=== PATIENT | female | born 1975 | race Caucasian/White ===

== ENCOUNTER 2022-05-03 10:06 | Emergency (ER) | payer OTHER ==
[2022-05-03] MEDS ORDERED: Sodium Chloride 0.9% 1000 ML 1,000 ML ONE ×2 (10:37→11:44)
[2022-05-03] MEDS ORDERED: Sodium Chloride 0.9% 1000 ML 1,000 ML IV STA ×2 (10:37→11:43)
[2022-05-03] MEDS ORDERED: TORAdol 30 mg Injection ONE (10:37)
[2022-05-03] MEDS ORDERED: Zofran 4 MG/2 ML VIAL ONE (10:37)
[2022-05-03 10:43] LABS: Hemoglobin 13.1 g/dL (12.0-16.0); Mean Cell Volume 87.8 fL (78-100); Mean Corpuscular Hemoglobin 29.5 pg (26-32); Mean Corpuscular Hgb Concent. 33.6 g/dL (32-36); Mean Platelet Volume 9.4 fL (7.5-11.0); Platelet Count 319 x10^3/uL (150-450); Red Blood Count 4.44 x10^6/uL (4.1-5.4); Red Cell Distribution Width 14.4 % (11.5-14.0)
[2022-05-03 10:49] LABS: White Blood Count 31.7 x10^3/uL (4.0-10.5)
[2022-05-03 10:56] LABS: ALBUMIN 3.6 g/dL (3.5-5.0); ALKALINE PHOSPHATASE 221 U/L (38-126); ANION GAP 17.5 MEQ/L (5-15); BLOOD UREA NITROGEN 22 mg/dL (7-17); CHLORIDE 94 mmol/L (98-107); Calcium 8.8 mg/dL (8.4-10.2); Carbon Dioxide 20 mmol/L (22-30); Creatinine 1 0.84 mg/dL (0.52-1.04); EST GLOMERULAR FILTRATION RATE > 60.0 ML/MIN; Glucose 292 mg/dL (74-106); LIPASE 15 U/L (23-300); Potassium 3.6 mmol/L (3.5-5.1); SGOT/AST 28 U/L (14-36); SGPT/ALT 37 U/L (0-35); SODIUM 129 mmol/L (137-145); Total Protein 7.4 g/dL (6.3-8.2)
--- NOTE | 2022-05-03 11:13 | ERPHSYRPT ---
- History of Present Illness Time Seen by Provider: 05/03/22 10:34 Historian: patient Exam Limitations: no limitations Patient Subjective Stated Complaint: Left sided flank pain Triage Nursing Assessment: Patient brought back to ED per w/c and transferred self to bed. Patient A+O X 3. Patient's skin flushed, warm and dry. Patient complains of left sided flank pain/abdominal pain that started Tuesday. Patient states around 0200 she started urinating blood. Patient complains of left sided flank/abdominal pain 12/09. Abdomen soft and round with BS X 4. Patient complains of nausea, but denies vomiting or diarrhea. Physician History: 46 years old female presented to ER with chief complaint of left flank pain for last 3 days with progressive worsening, moderate to severe sharp, radiating around to the left groin, aggravated with movements, associated with nausea and also reports having hematuria. Subjective feeling of fever and chills with generalized weakness fatigue and tiredness. Does have history of kidney stones. Timing/Duration: day(s) (3), gradual onset, worse Activities at Onset: rest Quality: sharpness Abdominal Pain Onset Location: LUQ, LLQ, suprapubic, flank Pain Radiation: groin Severity of Pain-Max: severe Severity of Pain-Current: severe Modifying Factors: Worsens With: movement, palpation Associated Symptoms: nausea Previous symptoms: no prior history Allergies/Adverse Reactions: cephalexin [From Keflex] Allergy (Verified 05/03/22 10:33) Penicillins Allergy (Verified 05/03/22 10:33) Home Medications: Bupropion HCl Xl 150 mg [Wellbutrin XL 150 MG] 1 tab PO DAILY 05/03/22 [History] Empagliflozin [Jardiance] 25 mg PO DAILY 05/03/22 [History] PANTOPRAZOLE 40 mg Tablet [Protonix 40MG Tablet] 1 tab PO BID 05/03/22 [History] Hx Influenza Vaccination/Date Given: No Hx Pneumococcal Vaccination/Date Given: No Immunizations Up to Date: Yes Travel Risk - International Travel Have you traveled outside of the country in past 3 weeks: No - Coronavirus Screening Are you exhibiting any of the following symptoms?: No Close contact with a COVID-19 positive Pt in past 14-21 Days: No - Vaccine Status Have you recieved a Covid-19 vaccination: Yes [employer]oration [employer]ologist: Moderna - Vaccination Dates Date of 2cond Vaccination (if applicable): na - Review of Systems Constitutional: No Symptoms Eyes: No Symptoms Ears, Nose, & Throat: No Symptoms Respiratory: No Symptoms Cardiac: No Symptoms Abdominal/Gastrointestinal: Abdominal Pain, Nausea Genitourinary Symptoms: Hematuria Musculoskeletal: Back Pain Skin: No Symptoms Neurological: No Symptoms Endocrine: No Symptoms Hematologic/Lymphatic: No Symptoms Immunological/Allergic: No Symptoms - Past Medical History Pertinent Past Medical History: Yes Neurological History: No Pertinent History ENT History: No Pertinent History Cardiac History: High Cholesterol Respiratory History: No Pertinent History Endocrine Medical History: Diabetes Type I Musculoskeletal History: No Pertinent History GI Medical History: No Pertinent History History: No Pertinent History Psycho-Social History: Anxiety, Depression Female Reproductive Disorders: No Pertinent History - Past Surgical History Past Surgical History: Yes Neuro Surgical History: No Pertinent History Gastrointestinal: Appendectomy, Cholecystectomy Musculoskeletal: Prosthesis Female Surgical History: Hysterectomy Other Surgical History: Above knee amputeee - Social History Smoking Status: Never smoker Exposure to second hand smoke: No Drug Use: marijuana Patient Lives Alone: No - Female History Hx Last Menstrual Period: hysterectomy Hx Now: (unkn) - Nursing Vital Signs Nursing Vital Signs: Initial Vital Signs Temperature 99.0 F 05/03/22 10:36 Pulse Rate 103 H 05/03/22 10:36 Respiratory Rate 18 05/03/22 10:36 Blood Pressure 129/84 05/03/22 10:36 O2 Sat by Pulse Oximetry 98 05/03/22 10:36 Pain Scale Pain Intensity 8 - Physical Exam General Appearance: no apparent distress, alert Eye Exam: PERRL/EOMI Ears, Nose, Throat Exam: normal ENT inspection Neck Exam: normal inspection, non-tender, supple, full range of motion Respiratory Exam: normal breath sounds, lungs clear Cardiovascular Exam: regular rate/rhythm, normal heart sounds Gastrointestinal/Abdomen Exam: soft, normal bowel sounds, tenderness (Flank/left lower quadrant) Back Exam: normal inspection, CVA tenderness Extremity Exam: normal inspection, normal range of motion, pelvis stable Neurologic Exam: alert, oriented x 3 Skin Exam: normal color SpO2 Interpretation: normal SpO2: 98 O2 Delivery: Room Air Ordered Tests: Active Orders 24 hr Category Date Time Status IV Insertion STAT Care 05/03/22 10:37 Active IV Insertion-2nd Peripheral STAT Care 05/03/22 11:41 Active NPO (ED) STAT Care 05/03/22 10:37 Active Release AMA OM.NOW Care 05/03/22 17:55 Active ABDOMEN AND PELVIS W CONTRAST [CT] Stat Exams 05/03/22 12:55 Completed ABDOMEN AND PELVIS W/0 CONTRAS [CT] Stat Exams 05/03/22 12:07 Completed BLOOD CULTURE Stat Lab 05/03/22 11:05 Received CBC W DIFF Stat Lab 05/03/22 10:35 Results CMP Stat Lab 05/03/22 10:35 Completed CULTURE,URINE Stat Lab 05/03/22 10:46 Received HCG,QUALITATIVE URINE Stat Lab 05/03/22 10:46 Completed LIPASE Stat Lab 05/03/22 10:35 Completed Lactic Acid Stat Lab 05/03/22 10:54 Completed Lactic Acid Stat Lab 05/03/22 13:30 Completed Manual Differential NC Stat Lab 05/03/22 10:35 Results PROCALCITONIN Stat Lab 05/03/22 11:05 Completed Pathologist Review Stat Lab 05/03/22 10:35 Results UA W/RFX CULTURE Stat Lab 05/03/22 10:46 Completed Transfer Order Routine Transfer 05/03/22 Ordered Medication Summary Generic Name Dose Route Start Last Admin Trade Name Freq PRN Reason Stop Dose Admin Potassium Chloride/Sodium Chloride 1,000 mls @ 125 mls/hr 05/03/22 13:00 05/03/22 14:49 Sodium Chloride 0.45% W/ 20 Meq Kcl IV 06/02/22 12:59 125 mls/hr .Q8H RUDI Administration Discontinued Medications Generic Name Dose Route Start Last Admin Trade Name Freq PRN Reason Stop Dose Admin Hydromorphone HCl 1 mg 05/03/22 12:32 05/03/22 12:36 Hydromorphone 1 Mg/1ml Inj 1 Mg/Ml Syringe IV 05/03/22 12:33 1 mg STAT ONE Administration Hydromorphone HCl Confirm 05/03/22 12:35 Hydromorphone 1 Mg/1ml Inj 1 Mg/Ml Syringe Administered 05/03/22 12:36 Dose 1 mg .ROUTE .STK-MED ONE Hydromorphone HCl 1 mg 05/03/22 15:11 05/03/22 15:16 Hydromorphone 1 Mg/1ml Inj 1 Mg/Ml Syringe IV 05/03/22 15:12 1 mg STAT ONE Administration Hydromorphone HCl Confirm 05/03/22 15:13 Hydromorphone 1 Mg/1ml Inj 1 Mg/Ml Syringe Administered 05/03/22 15:14 Dose 1 mg .ROUTE .STK-MED ONE Hydromorphone HCl 0.5 mg 05/03/22 17:34 05/03/22 17:38 Hydromorphone 1 Mg/1ml Inj 1 Mg/Ml Syringe IV 05/03/22 17:35 0.5 mg STAT ONE Administration Hydromorphone HCl Confirm 05/03/22 17:39 Hydromorphone 1 Mg/1ml Inj 1 Mg/Ml Syringe Administered 05/03/22 17:40 Dose 1 mg .ROUTE .STK-MED ONE Sodium Chloride Confirm 05/03/22 10:37 Sodium Chloride 0.9% 1000 Ml Administered 05/03/22 10:38 Dose 1,000 mls @ ud .ROUTE .STK-MED ONE Sodium Chloride 1,000 mls @ 999 mls/hr 05/03/22 10:37 05/03/22 11:55 Sodium Chloride 0.9% 1000 Ml IV 05/03/22 11:37 Infused .Q1H1M STA Infusion Levofloxacin/Dextrose 750 mg in 150 mls @ 100 mls/hr 05/03/22 11:28 05/03/22 13:17 Levofloxacin 750mg/150ml D5w IV 05/03/22 12:57 Infused STAT STA Infusion Aztreonam 2 gm/ Sodium 100 mls @ 200 mls/hr 05/03/22 11:29 05/03/22 12:17 Chloride IV 05/03/22 11:58 200 mls/hr STAT ONE Administration Sodium Chloride 1,000 mls @ 999 mls/hr 05/03/22 11:43 05/03/22 12:47 Sodium Chloride 0.9% 1000 Ml IV 05/03/22 12:43 Infused .Q1H1M STA Infusion Sodium Chloride Confirm 05/03/22 11:44 Sodium Chloride 0.9% 1000 Ml Administered 05/03/22 11:45 Dose 1,000 mls @ ud .ROUTE .STK-MED ONE Levofloxacin/Dextrose Confirm 05/03/22 11:44 Levofloxacin 750mg/150ml D5w Administered 05/03/22 11:45 Dose 750 mg in 150 mls @ ud IV .STK-MED ONE Ketorolac Tromethamine Confirm 05/03/22 10:37 Ketorolac Tromethamine 30 Mg/Ml Inj Administered 05/03/22 10:38 Dose 30 mg .ROUTE .STK-MED ONE Ketorolac Tromethamine 30 mg 05/03/22 11:21 05/03/22 11:23 Ketorolac Tromethamine 30 Mg/Ml Inj IV 05/03/22 11:22 30 mg STAT ONE Administration Metoclopramide HCl 10 mg 05/03/22 15:11 05/03/22 15:15 Metoclopramide Hcl 10 Mg/2 Ml Vial IV 05/03/22 15:12 10 mg STAT ONE Administration Metoclopramide HCl Confirm 05/03/22 15:13 Metoclopramide Hcl 10 Mg/2 Ml Vial Administered 05/03/22 15:14 Dose 10 mg .ROUTE .STK-MED ONE Ondansetron HCl Confirm 05/03/22 10:37 Ondansetron Hcl 4 Mg/2 Ml Vial Administered 05/03/22 10:38 Dose 4 mg .ROUTE .STK-MED ONE Ondansetron HCl 4 mg 05/03/22 11:21 05/03/22 11:23 Ondansetron Hcl 4 Mg/2 Ml Vial IV 05/03/22 11:22 4 mg STAT ONE Administration Lab/Rad Data: Laboratory Result Diagrams 05/03/22 10:35 05/03/22 10:35 Laboratory Results 05/03/22 05/03/22 05/03/22 Range/Units 13:30 12:00 11:05 WBC (4.0-10.5) x10^3/uL RBC (4.1-5.4) x10^6/uL Hgb (12.0-16.0) g/dL Hct (35-47) % MCV (78-100) fL MCH (26-32) pg MCHC (32-36) g/dL RDW (11.5-14.0) % Plt Count (150-450) x10^3/uL MPV (7.5-11.0) fL Segmented Neutrophils (36.0-66.0) % Band Neutrophils (0.0-2.0) % Lymphocytes (Manual) (24-44) % Monocytes (Manual) (0.0-12.0) % Platelet Estimate (NORMAL) RBC Morphology Smear Path Review Sodium (137-145) mmol/L Potassium (3.5-5.1) mmol/L Chloride (98-107) mmol/L Carbon Dioxide (22-30) mmol/L Anion Gap (5-15) MEQ/L BUN (7-17) mg/dL Creatinine (0.52-1.04) mg/dL Estimated GFR ML/MIN Glucose (74-106) mg/dL Lactic Acid 1.0 (0.4-2.0) Calcium (8.4-10.2) mg/dL Total Bilirubin (0.2-1.3) mg/dL AST (14-36) U/L ALT (0-35) U/L Alkaline Phosphatase (38-126) U/L Serum Total Protein (6.3-8.2) g/dL Albumin (3.5-5.0) g/dL Lipase (23-300) U/L Procalcitonin 4.000 H* (0.030-0.080) ng/mL Urinalys Dipstick Clnc Urine Color (YELLOW) Urine Appearance (CLEAR) Urine pH (5-6) Ur Specific [place] (1.005-1.025) POC Urine Protein Conf (Negative) Urine Ketones (NEGATIVE) Urine Nitrite (NEGATIVE) Urine Bilirubin (NEGATIVE) Urine Urobilinogen (0-1) mg/dL Urine Leukocytes (NEGATIVE) Urine WBC (Auto) (0-5) /HPF Urine RBC (Auto) (0-2) /HPF U Epithel Cells (Auto) (FEW) /HPF Urine Bacteria (Auto) (NEGATIVE) /HPF Urine RBC (0-5) Finesse/ul Urine Mucus (Auto) (NEGATIVE) /HPF Urine Yeast (Budding) (NEGATIVE) /HPF Ur Culture Indicated? Urine Glucose (NEGATIVE) mg/dL Urine HCG, Qual (Negative) Influenza Type A Ag NEGATIVE (NEGATIVE) Influenza Type B Ag NEGATIVE (NEGATIVE) RSV (PCR) NEGATIVE (Negative) SARS-CoV-2 (PCR) NEGATIVE (NEGATIVE) 05/03/22 05/03/22 05/03/22 Range/Units 10:54 10:46 10:46 WBC (4.0-10.5) x10^3/uL RBC (4.1-5.4) x10^6/uL Hgb (12.0-16.0) g/dL Hct (35-47) % MCV (78-100) fL MCH (26-32) pg MCHC (32-36) g/dL RDW (11.5-14.0) % Plt Count (150-450) x10^3/uL MPV (7.5-11.0) fL Segmented Neutrophils (36.0-66.0) % Band Neutrophils (0.0-2.0) % Lymphocytes (Manual) (24-44) % Monocytes (Manual) (0.0-12.0) % Platelet Estimate (NORMAL) RBC Morphology Smear Path Review Sodium (137-145) mmol/L Potassium (3.5-5.1) mmol/L Chloride (98-107) mmol/L Carbon Dioxide (22-30) mmol/L Anion Gap (5-15) MEQ/L BUN (7-17) mg/dL Creatinine (0.52-1.04) mg/dL Estimated GFR ML/MIN Glucose (74-106) mg/dL Lactic Acid 2.9 H (0.4-2.0) Calcium (8.4-10.2) mg/dL Total Bilirubin (0.2-1.3) mg/dL AST (14-36) U/L ALT (0-35) U/L Alkaline Phosphatase (38-126) U/L Serum Total Protein (6.3-8.2) g/dL Albumin (3.5-5.0) g/dL Lipase (23-300) U/L Procalcitonin (0.030-0.080) ng/mL Urinalys Dipstick Clnc MAIN LAB Urine Color YELLOW (YELLOW) Urine Appearance CLOUDY A (CLEAR) Urine pH 5.0 (5-6) Ur Specific [place] 1.015 (1.005-1.025) POC Urine Protein Conf 100 A (Negative) Urine Ketones LARGE-80 A (NEGATIVE) Urine Nitrite NEGATIVE (NEGATIVE) Urine Bilirubin SMALL A (NEGATIVE) Urine Urobilinogen 1 A (0-1) mg/dL Urine Leukocytes TRACE A (NEGATIVE) Urine WBC (Auto) >100 A (0-5) /HPF Urine RBC (Auto) >101 A (0-2) /HPF U Epithel Cells (Auto) RARE (FEW) /HPF Urine Bacteria (Auto) MODERATE A (NEGATIVE) /HPF Urine RBC LARGE A (0-5) Finesse/ul Urine Mucus (Auto) SLIGHT A (NEGATIVE) /HPF Urine Yeast (Budding) Few A (NEGATIVE) /HPF Ur Culture Indicated? YES Urine Glucose >=1000 A (NEGATIVE) mg/dL Urine HCG, Qual NEGATIVE (Negative) Influenza Type A Ag (NEGATIVE) Influenza Type B Ag (NEGATIVE) RSV (PCR) (Negative) SARS-CoV-2 (PCR) (NEGATIVE) 05/03/22 05/03/22 Range/Units 10:35 10:35 WBC 31.7 H* (4.0-10.5) x10^3/uL RBC 4.44 (4.1-5.4) x10^6/uL Hgb 13.1 (12.0-16.0) g/dL Hct 39.0 (35-47) % MCV 87.8 (78-100) fL MCH 29.5 (26-32) pg MCHC 33.6 (32-36) g/dL RDW 14.4 H (11.5-14.0) % Plt Count 319 (150-450) x10^3/uL MPV 9.4 (7.5-11.0) fL Segmented Neutrophils 88 H (36.0-66.0) % Band Neutrophils 4 H (0.0-2.0) % Lymphocytes (Manual) 6 L (24-44) % Monocytes (Manual) 2 (0.0-12.0) % Platelet Estimate NORMAL (NORMAL) RBC Morphology NORMAL Smear Path Review Pending Sodium 129 L (137-145) mmol/L Potassium 3.6 (3.5-5.1) mmol/L Chloride 94 L (98-107) mmol/L Carbon Dioxide 20 L (22-30) mmol/L Anion Gap 17.5 H (5-15) MEQ/L BUN 22 H (7-17) mg/dL Creatinine 0.84 (0.52-1.04) mg/dL Estimated GFR > 60.0 ML/MIN Glucose 292 H (74-106) mg/dL Lactic Acid (0.4-2.0) Calcium 8.8 (8.4-10.2) mg/dL Total Bilirubin 1.10 (0.2-1.3) mg/dL AST 28 (14-36) U/L ALT 37 H (0-35) U/L Alkaline Phosphatase 221 H (38-126) U/L Serum Total Protein 7.4 (6.3-8.2) g/dL Albumin 3.6 (3.5-5.0) g/dL Lipase 15 L (23-300) U/L Procalcitonin (0.030-0.080) ng/mL Urinalys Dipstick Clnc Urine Color (YELLOW) Urine Appearance (CLEAR) Urine pH (5-6) Ur Specific [place] (1.005-1.025) POC Urine Protein Conf (Negative) Urine Ketones (NEGATIVE) Urine Nitrite (NEGATIVE) Urine Bilirubin (NEGATIVE) Urine Urobilinogen (0-1) mg/dL Urine Leukocytes (NEGATIVE) Urine WBC (Auto) (0-5) /HPF Urine RBC (Auto) (0-2) /HPF U Epithel Cells (Auto) (FEW) /HPF Urine Bacteria (Auto) (NEGATIVE) /HPF Urine RBC (0-5) Finesse/ul Urine Mucus (Auto) (NEGATIVE) /HPF Urine Yeast (Budding) (NEGATIVE) /HPF Ur Culture Indicated? Urine Glucose (NEGATIVE) mg/dL Urine HCG, Qual (Negative) Influenza Type A Ag (NEGATIVE) Influenza Type B Ag (NEGATIVE) RSV (PCR) (Negative) SARS-CoV-2 (PCR) (NEGATIVE) - Progress Progress: improved, pain not gone completely, re-examined Progress Note: 05/03/22 13:02 46-year-old is evaluated for left flank pain with nausea and hematuria. Patient does have a remote history of kidney stone. No fever on presentation. Given fluids and symptomatic treatment, patient has a white count of 31 with lactate of 2.9 and procalcitonin of 4.0 with UTI, though has stable renal functions. Obtained CT abdomen pelvis without contrast which showed finding consistent with left perinephric fat stranding and questionable cyst rupture. Patient continues to have pain needing multiple doses of pain medication, started on broad-spectrum antibiotics aztreonam and Levaquin. Discussed with Dr. Spears and patient is being admitted, will obtain CT abdomen pelvis with contrast for further evaluation of rupture cyst versus any other acute pathology. Plan discussed with patient and family who understand and agree with it. 05/03/22 15:[address] abdomen pelvis with contrast which showed she has 5 x 2 x 6 cm collection which seems probably perirenal abscess. I believe patient needs urology/IR drain placement. I have discussed with Dr. Villanueva at [facility], no IR services are available and recommended transfer to somewhere else. [facility] and [facility] hospitalist and not excepting patients because of being at a full capacity currently. We will call [facility] and other [facility] for transfer. Plan discussed with patient who understand and agrees with it. 05/03/22 15:56 I have [address] with Dr. Gloria at [facility], reviewed history, work-up, patient is accepted for transfer but there is a wait time before bed would be available maybe 1 to 2 days. Patient is on the wait list. I have called [facility] and they are all also full and putting patient on a wait list for couple of days. We will try to call [facility] to see if we can get a bed quicker. 05/03/22 16:49 I have spoken with Dr. Riddle at [facility], reviewed history work-up and agreed with transfer. No beds available at this moment, will call us back when bed is available. I have also called [facility] in [place], waiting for callback. 05/03/22 16:[address] Navya Dumas at [facility], patient is placed on transfer list. 05/03/22 17:[address] Ko at [facility], reviewed history, work-up and current management, agreed with transfer. They are hopeful bed would be available pretty quickly. 05/03/22 18:04 Bed availability is pending still at multiple facilities. Patient does not want to stay here at all and wants to leave AGAINST MEDICAL ADVICE. Patient is not confused or altered at all. Patient states "I would rather go myself to a bigger hospital rather than staying here and waiting". Significant other is also at bedside and involved in decision making. Discussed with them about worsening of condition, delaying of diagnosis and management but still she wants to leave and signed AMA paperwork. Discussed signs symptoms of worsening needing return which she seems understanding. Patient is planning to go to [facility] ER. 05/03/22 18:06 Counseled pt/family regarding: lab results, diagnosis, need for follow-up, rad results - Departure Departure Disposition: AMA Clinical Impression: Acute pyelonephritis, Sepsis secondary to UTI, Abscess, renal/perirenal Condition: Stable Critical Care Time: No Referrals: DOCTOR,NO FAMILY [Primary Care Provider] - Follow up/PCP as directed
[2022-05-03 11:15] LABS: BAND 4 % (0.0-2.0); Lymphocytes 6 % (24-44); Monocyte 2 % (0.0-12.0); Total Cells Counted 100
[2022-05-03 11:16] LABS: Platelet Estimate NORMAL (NORMAL)
[2022-05-03] MEDS ORDERED: Zofran 4 MG/2 ML VIAL IV ONE (11:21)
[2022-05-03] MEDS ORDERED: TORAdol 30 mg Injection IV ONE (11:21)
[2022-05-03 11:28] LABS: Appearance CLOUDY (CLEAR); Bilirubin SMALL (NEGATIVE); Dipstick done @ ? MAIN LAB; Glucose >=1000 mg/dL (NEGATIVE); Ketones LARGE-80 (NEGATIVE); Nitrite NEGATIVE (NEGATIVE); Protein,Urine Dip 100 (Negative); RBC LARGE Ery/ul (0-5); Specific Gravity 1.015 (1.005-1.025); Urobilinogen 1 mg/dL (0-1)
[2022-05-03] MEDS ORDERED: LEVOFLOXACIN 750MG/150ML D5W 750 MG/150 ML BAG IV STA (11:28)
[2022-05-03 11:29] LABS: Bacteria MODERATE /HPF (NEGATIVE); Epithelial Cells RARE /HPF (FEW); Mucus SLIGHT /HPF (NEGATIVE); WBC >100 /HPF (0-5)
[2022-05-03] MEDS ORDERED: AZACTAM 1 GM*** 2 GM in Sodium Chloride 0.9% 100 ML IV ONE (11:29)
[2022-05-03 11:30] LABS: Budding Yeast Few /HPF (NEGATIVE); RBC >101 /HPF (0-2); Urine Cultured Indicated? YES
[2022-05-03] MEDS ORDERED: LEVOFLOXACIN 750MG/150ML D5W 750 MG/150 ML BAG IV ONE (11:44)
--- NOTE | 2022-05-03 12:22 | XRAY ---
Indication: Left flank pain, hematuria, and leukocytosis. Multiple contiguous axial images obtained through the abdomen and pelvis without contrast using renal stone protocol. Comparison: None Lung bases demonstrate incompletely visualized 1.4 x 0.7 cm posterior right lower lobe irregular subpleural noncalcified nodule. Also mild bibasilar subsegmental atelectasis/scarring and tiny left lower lobe calcified granuloma. Heart not enlarged. No renal calculus or evidence for obstructive uropathy in either system. Left mid kidney demonstrates 5.2 x 2.8 x 4.6 cm cortical hypoattenuation with moderate surrounding perinephric stranding and tiny free fluid either ruptured cyst versus mass. Previous cholecystectomy and appendectomy, and hysterectomy reported. Noncontrasted stomach and bowel loops appear nonobstructed. Mild diffuse scattered colonic fecal debris throughout. 23.5 cm fatty hepatomegaly. No free fluid/air. Remaining pancreas, spleen, adrenal glands, right kidney, right ureter, and bladder are unremarkable for noncontrast exam. Moderate scattered aortoiliac calcifications without AAA. Osseous structures intact with minimal degenerative changes throughout the spine. No ventral or inguinal hernias. Impression: 1. Negative renal calculus or evidence for obstructive uropathy. 2. Left mid renal irregular cortical hypoattenuation with perinephric stranding and tiny free fluid, possible ruptured cyst. Malignancy not completely excluded. Contrast exam may yield further information. 3. Incompletely visualized small indeterminant right lower lobe noncalcified nodule. Dedicated CT chest may yield further information. 4. Mild diffuse fecal stasis, fatty hepatomegaly, arteriosclerotic disease, and degenerative spondylosis.
[2022-05-03 12:31] LABS: INFLUENZA A NEGATIVE (NEGATIVE); INFLUENZA B NEGATIVE (NEGATIVE); RESPIRATORY SYNCTIAL VIRUS NEGATIVE (Negative); SARS-CoV-2 Xpert Express NEGATIVE (NEGATIVE)
[2022-05-03] MEDS ORDERED: Hydromorphone 1 mg/ml Injection IV ONE ×3 (12:32→17:34)
[2022-05-03] MEDS ORDERED: Hydromorphone 1 mg/ml Injection ONE ×3 (12:35→17:39)
[2022-05-03] MEDS ORDERED: SODIUM CHLORIDE 0.45% W/ 20 mEq KCL 1,000 ML IV SCH (13:00)
--- NOTE | 2022-05-03 14:54 | XRAY ---
Indication: Left renal hypodense lesion on same day noncontrast exam. Left flank pain and hematuria. Marked leukocytosis. Multiple contiguous axial images obtained through the abdomen and pelvis using 80cc Isovue 370 contrast. Comparison: Noncontrast exam taken earlier in the day. Lung bases again demonstrates incompletely visualized posterior right lower lobe irregular subpleural noncalcified nodule and bibasilar subsegmental atelectasis/scarring. Heart not enlarged. Both kidneys enhance and excrete. Left mid kidney again demonstrates elliptical noncalcified heterogeneous mass measuring 6.2 x 2.4 x 5.3 cm with surrounding perinephric stranding and perinephric fluid. There is now enhancing septae. Inflammatory/infectious process such as perirenal abscess offered for clinical consideration. Malignancy not completely excluded. No other solid/cystic renal mass. Stomach and bowel loops remain nonobstructed again with mild scattered colonic fecal debris. Again fatty hepatomegaly, moderate scattered arteriosclerotic calcifications, and cholecystectomy. Remaining liver, pancreas, spleen, right kidney, right ureter, and bladder are unremarkable. No pathologic retroperitoneal lymphadenopathy. Impression: 1. Left mid renal mass is better defined on this contrast exam with measurements above and enhancing septae. Stable perinephric stranding/perinephric fluid. Given leukocytosis, perirenal abscess offered for clinical consideration. Malignancy not completely excluded. 2. Again incompletely visualized indeterminant right lower lobe noncalcified nodule, mild fecal stasis, fatty hepatomegaly, and arteriosclerotic disease.
[2022-05-03] MEDS ORDERED: Reglan 10 MG/2 ML IV ONE (15:11)
[2022-05-03] MEDS ORDERED: Reglan 10 MG/2 ML ONE (15:13)
[2022-05-03 16:50] VITALS: O2SAT 98
[2022-05-03 17:23] VITALS: BP 135/67; PULSE 100
== END 2022-05-03 18:03 | disposition left against medical advice (07) ==
LOC: ED 10:06
DX: A41.9 Sepsis, unspecified organism (principal); N39.0 Urinary tract infection, site not specified; N10 Acute pyelonephritis; N15.1 Renal and perinephric abscess; R10.2 Pelvic and perineal pain; R11.0 Nausea; R31.9 Hematuria, unspecified; R50.9 Fever, unspecified; R53.83 Other fatigue; E78.5 Hyperlipidemia, unspecified; E10.9 Type 1 diabetes mellitus without complications; Z79.84 Long term (current) use of oral hypoglycemic drugs; Z79.899 Other long term (current) drug therapy
CPT/HCPCS: 0241U; 36000; 36415; 74176; 74177; 80053; 81015; 81025; 83605; 83690; 84145; 85025; 87040; 87086; 96360; 96361; 96365; 96367; 96374; 96375; 96376; 99285; 87077; 87186; J1170; J1885; J1956; J2405

== ENCOUNTER 2023-12-21 03:01 | Emergency (ER) | payer OTHER ==
[2023-12-21 03:18] VITALS: TEMP 97.4
[2023-12-21] MEDS ORDERED: Zofran 4 MG/2 ML VIAL ONE (03:32)
--- NOTE | 2023-12-21 03:32 | ERPHSYRPT ---
- History of Present Illness Time Seen by Provider: 12/21/23 03:22 Historian: patient Exam Limitations: no limitations Patient Subjective Stated Complaint: L flank pain x2 days, pt states "I think I have a stone or a bad kidney infection. " Triage Nursing Assessment: pt transferred from wheelchair to cot by self, pt alert and oriented x3, skin pwd, pt c/o L flank pain x2 days and unable to get into her PCP, pt c/o nausea, pt afebrile. rating pain 9/10, pt c/o urgency, frequency, and burning upon urination. Physician History: For the past 2 days pt has had constant sharp stabbing left flank pain in waves up to 10/10 in severity with dysuria; denies chest pain, shortness of air, vomiting. Allergies/Adverse Reactions: cephalexin [From Keflex] Allergy (Verified 12/21/23 03:10) Penicillins Allergy (Verified 12/21/23 03:10) Home Medications: Insulin Glargine,Hum.rec.anlog [Lantus] 30 units SQ HS 12/21/23 [History] Insulin Lispro [Humalog] 1 unit SQ UD 12/21/23 [History] Semaglutide [Ozempic] 0.5 mg SQ WEEKLY 12/21/23 [History] Hx Tetanus, Diphtheria Vaccination/Date Given: Yes Hx Influenza Vaccination/Date Given: No Hx Pneumococcal Vaccination/Date Given: No Travel Risk - International Travel Have you traveled outside of the country in past 3 weeks: No - Emerging Infectious Disease Are you exhibiting symptoms associated with any current EIDs: No - Review of Systems Respiratory: No Dyspnea Cardiac: No Chest Pain Abdominal/Gastrointestinal: No Abdominal Pain, No Vomiting, No Diarrhea Genitourinary Symptoms: Dysuria - Past Medical History Pertinent Past Medical History: Yes Neurological History: No Pertinent History ENT History: No Pertinent History Cardiac History: High Cholesterol, Hypertension Respiratory History: No Pertinent History Endocrine Medical History: Diabetes Type I Musculoskeletal History: Other GI Medical History: No Pertinent History History: No Pertinent History Psycho-Social History: Anxiety, Depression Female Reproductive Disorders: No Pertinent History Other Medical History: R above the knee amputee - Past Surgical History Past Surgical History: Yes Neuro Surgical History: No Pertinent History Cardiac: No Pertinent History Respiratory: No Pertinent History Gastrointestinal: Appendectomy, Cholecystectomy Genitourinary: Other Musculoskeletal: Prosthesis Female Surgical History: Hysterectomy Other Surgical History: Above knee amputee, L kidney stent placed and removed - Female History Hx Last Menstrual Period: post hysterectomy Hx Now: No - Social History Smoking Status: Former smoker Exposure to second hand smoke: No Drug Use: none Patient Lives Alone: No - Social Determinants of Health Will the patient participate in the screening: Declined to provide - Nursing Vital Signs Nursing Vital Signs: Initial Vital Signs Temperature 97.4 F 12/21/23 03:10 Pulse Rate 92 H 12/21/23 03:10 Respiratory Rate 18 12/21/23 03:10 Blood Pressure 172/103 12/21/23 03:10 O2 Sat by Pulse Oximetry 98 12/21/23 03:10 Pain Scale Pain Intensity 5 - Physical Exam General Appearance: alert Eye Exam: PERRL/EOMI Ears, Nose, Throat Exam: pharynx normal Neck Exam: normal inspection Respiratory Exam: lungs clear Cardiovascular Exam: normal heart sounds Gastrointestinal/Abdomen Exam: normal bowel sounds Back Exam: normal inspection Extremity Exam: other (right AKA) Neurologic Exam: alert, cooperative Skin Exam: warm, dry SpO2 Interpretation: normal SpO2: 98 O2 Delivery: Room Air - Course Nursing assessment & vital signs reviewed: Yes - CT Exams Abdomen/Pelvis CT Interpretation: Tele-radiologist Report (Urinary bladder circumferential wall thickening. See rest of report.) Ordered Tests: Active Orders 24 hr Category Date Time Status IV Insertion STAT Care 12/21/23 03:27 Active ABDOMEN AND PELVIS W/0 CONTRAS [CT] Stat Exams 12/21/23 03:27 Completed AMYLASE Stat Lab 12/21/23 03:45 Completed CBC W DIFF Stat Lab 12/21/23 03:45 Completed CMP Stat Lab 12/21/23 03:45 Completed CULTURE,URINE Stat Lab 12/21/23 03:46 Received LIPASE Stat Lab 12/21/23 03:45 Completed MAGNESIUM Stat Lab 12/21/23 03:45 Completed UA W/RFX UR CULTURE Stat Lab 12/21/23 03:46 Completed Medication Summary Generic Name Dose Route Start Last Admin Trade Name Freq PRN Reason Stop Dose Admin Sodium Chloride 1,000 mls @ 100 mls/hr 12/21/23 03:30 12/21/23 03:40 Sodium Chloride 0.9% 1000 Ml IV 01/20/24 03:29 100 mls/hr .Q10H RUDI Administration Levofloxacin/Dextrose 500 mg in 100 mls @ 100 mls/hr 12/21/23 04:38 12/21/23 04:48 Levofloxacin 500mg/100ml D5w IV 12/21/23 05:37 100 mls/hr STAT STA 100 mls/hr Administration Discontinued Medications Generic Name Dose Route Start Last Admin Trade Name Freq PRN Reason Stop Dose Admin Hydromorphone HCl 1 mg 12/21/23 03:28 12/21/23 03:41 Hydromorphone 1 Mg/1ml Inj IV 12/21/23 03:29 1 mg STAT ONE Administration Hydromorphone HCl Confirm 12/21/23 03:33 Hydromorphone 1 Mg/1ml Inj Administered 12/21/23 03:34 Dose 1 mg .ROUTE .STK-MED ONE Levofloxacin/Dextrose Confirm 12/21/23 04:45 Levofloxacin 500mg/100ml D5w Administered 12/21/23 04:46 Dose 500 mg in 100 mls @ ud IV .STK-MED ONE Ondansetron HCl 4 mg 12/21/23 03:27 12/21/23 03:40 Ondansetron Hcl 4 Mg/2 Ml Vial IV 12/21/23 03:28 4 mg STAT ONE Administration Ondansetron HCl Confirm 12/21/23 03:32 Ondansetron Hcl 4 Mg/2 Ml Vial Administered 12/21/23 03:33 Dose 4 mg .ROUTE .STK-MED ONE Lab/Rad Data: Laboratory Result Diagrams 12/21/23 03:45 12/21/23 03:45 Laboratory Results 12/21/23 12/21/23 12/21/23 Range/Units 03:46 03:45 03:45 WBC (3.98-10.04) x10^3/uL RBC (3.93-5.22) x10^6/uL Hgb (11.2-15.7) g/dL Hct (34.1-44.9) % MCV (79.4-94.8) fL MCH (25.6-32.2) pg MCHC (32.2-35.5) g/dL RDW (11.7-14.4) % Plt Count (182-369) x10^3/uL MPV (9.4-12.3) fL Gran % (34.0-71.1) % Immature Gran % (Auto) (0.001-0.429) % Nucleat RBC Rel Count (0.00-0.2) % Eos # (Auto) (0.04-0.36) x10^3/uL Immature Gran # (Auto) (0.001-0.031) x10^3u/L Absolute Lymphs (auto) (1.18-3.74) x10^3/uL Absolute Monos (auto) (0.24-0.86) x10^3/uL Absolute Nucleated RBC (0.00-0.012) x10^3u/L Lymphocytes % (19.3-51.7) % Monocytes % (4.7-12.5) % Eosinophils % (0.7-5.8) % Basophils % (0.1-1.2) % Absolute Granulocytes (1.56-6.13) x10^3/uL Basophils # (0.01-0.08) x10^3/uL Sodium 133 L (135-145) mmol/L Potassium 4.3 (3.5-5.1) mmol/L Chloride 101 (98-107) mmol/L Carbon Dioxide 20 L (22-30) mmol/L Anion Gap 16.4 H (5-15) MEQ/L BUN 13 (7-17) mg/dL Creatinine 0.63 (0.52-1.04) mg/dL Estimated GFR 110.0 ML/MIN Glucose 329 H (74-106) mg/dL Calcium 9.6 (8.4-10.2) mg/dL Magnesium 1.7 (1.6-2.3) mg/dL Total Bilirubin 0.50 (0.2-1.3) mg/dL AST 32 (14-36) U/L ALT 44 H (0-35) U/L Alkaline Phosphatase 160 H (38-126) U/L Serum Total Protein 7.1 (6.3-8.2) g/dL Albumin 4.0 (3.5-5.0) g/dL Amylase 86 (30-110) U/L Lipase 154 (23-300) U/L Urine Color Yellow (Yellow) Urine Appearance Cloudy A (Clear) Urine pH 5.5 (4.6-8.0) Ur Specific [place] >=1.030 A (1.005-1.030) Urine Protein 30 (Negative) Urine Glucose (UA) >=1000 A (Negative) mg/dL Urine Ketones Negative (Negative) Urine Blood Negative (Negative) Urine Nitrite Negative (Negative) Urine Bilirubin Negative (Negative) Urine Urobilinogen 0.2 (0.2) mg/dL Ur Leukocyte Esterase Small A (Negative) U Hyaline Cast (Auto) NONE SEEN (0-2) /LPF Urine Microscopic RBC 0-2 (0-5) /HPF Urine Microscopic WBC 51-100 A (0-5) /HPF Ur Epithelial Cells Few (None Seen) /HPF Urine Bacteria Many A (None Seen) /HPF Urine Yeast (Budding) Few A (None Seen) /HPF Urine Culture Reflexed YES (NO) 12/21/23 Range/Units 03:45 WBC 14.8 H (3.98-10.04) x10^3/uL RBC 4.97 (3.93-5.22) x10^6/uL Hgb 14.8 (11.2-15.7) g/dL Hct 42.9 (34.1-44.9) % MCV 86.3 (79.4-94.8) fL MCH 29.8 (25.6-32.2) pg MCHC 34.5 (32.2-35.5) g/dL RDW 13.2 (11.7-14.4) % Plt Count 325 (182-369) x10^3/uL MPV 10.1 (9.4-12.3) fL Gran % 47.0 (34.0-71.1) % Immature Gran % (Auto) 0.5 H (0.001-0.429) % Nucleat RBC Rel Count 0.0 (0.00-0.2) % Eos # (Auto) 0.90 H (0.04-0.36) x10^3/uL Immature Gran # (Auto) 0.08 H (0.001-0.031) x10^3u/L Absolute Lymphs (auto) 5.80 H (1.18-3.74) x10^3/uL Absolute Monos (auto) 0.91 H (0.24-0.86) x10^3/uL Absolute Nucleated RBC 0.00 (0.00-0.012) x10^3u/L Lymphocytes % 39.2 (19.3-51.7) % Monocytes % 6.2 (4.7-12.5) % Eosinophils % 6.1 H (0.7-5.8) % Basophils % 1.0 (0.1-1.2) % Absolute Granulocytes 6.95 H (1.56-6.13) x10^3/uL Basophils # 0.15 H (0.01-0.08) x10^3/uL Sodium (135-145) mmol/L Potassium (3.5-5.1) mmol/L Chloride (98-107) mmol/L Carbon Dioxide (22-30) mmol/L Anion Gap (5-15) MEQ/L BUN (7-17) mg/dL Creatinine (0.52-1.04) mg/dL Estimated GFR ML/MIN Glucose (74-106) mg/dL Calcium (8.4-10.2) mg/dL Magnesium (1.6-2.3) mg/dL Total Bilirubin (0.2-1.3) mg/dL AST (14-36) U/L ALT (0-35) U/L Alkaline Phosphatase (38-126) U/L Serum Total Protein (6.3-8.2) g/dL Albumin (3.5-5.0) g/dL Amylase (30-110) U/L Lipase (23-300) U/L Urine Color (Yellow) Urine Appearance (Clear) Urine pH (4.6-8.0) Ur Specific [place] (1.005-1.030) Urine Protein (Negative) Urine Glucose (UA) (Negative) mg/dL Urine Ketones (Negative) Urine Blood (Negative) Urine Nitrite (Negative) Urine Bilirubin (Negative) Urine Urobilinogen (0.2) mg/dL Ur Leukocyte Esterase (Negative) U Hyaline Cast (Auto) (0-2) /LPF Urine Microscopic RBC (0-5) /HPF Urine Microscopic WBC (0-5) /HPF Ur Epithelial Cells (None Seen) /HPF Urine Bacteria (None Seen) /HPF Urine Yeast (Budding) (None Seen) /HPF Urine Culture Reflexed (NO) - Progress Progress: improved Counseled pt/family regarding: lab results, diagnosis, need for follow-up, rad results Medical Desision Making - Diagnostic Testing Diagnostic test were ordered, analyzed, and reviewed by me: Yes Radiological Interpretation: Teleradiologist Report - Departure Departure Disposition: Home Clinical Impression: UTI (urinary tract infection), Left flank pain Condition: Stable Critical Care Time: No Referrals: GLORIA SANDOVAL DO [Primary Care Provider] - Follow up/PCP as directed Instructions: Flank Pain, Urinary Tract Infection, Adult ED Additional Instructions: Follow up with private doctor tomorrow. Prescriptions: Levofloxacin [Levofloxacin 500 MG Tablet] 500 mg PO DAILY #10 tablet
[2023-12-21] MEDS ORDERED: Hydromorphone 1 mg/ml Injection ONE (03:33)
[2023-12-21] MEDS ORDERED: Sodium Chloride 0.9% 1000 ML 1,000 ML ONE (03:33)
[2023-12-21] MEDS: Sodium Chloride 0.9% 1000 ML 1,000 ML IV SCH (03:40)
[2023-12-21] MEDS: Zofran 4 MG/2 ML VIAL IV ONE (03:40)
[2023-12-21] MEDS: Hydromorphone 1 mg/ml Injection IV ONE (03:41)
[2023-12-21 03:47] LABS: Absolute Neutrophil Ct (ANC) 6.95 x10^3/uL (1.56-6.13); Basophil (Absolute #) 0.15 x10^3/uL (0.01-0.08); Eosinophil % 6.1 % (0.7-5.8); Hematocrit 42.9 % (34.1-44.9); Hemoglobin 14.8 g/dL (11.2-15.7); IMMATURE GRAN # 0.08 x10^3u/L (0.001-0.031); IMMATURE GRAN % 0.5 % (0.001-0.429); Lymphocytes % 39.2 % (19.3-51.7); Mean Cell Volume 86.3 fL (79.4-94.8); Mean Corpuscular Hemoglobin 29.8 pg (25.6-32.2); Mean Corpuscular Hgb Concent. 34.5 g/dL (32.2-35.5); Mean Platelet Volume 10.1 fL (9.4-12.3); Monocyte (Absolute #) 0.91 x10^3/uL (0.24-0.86); Monocytes % 6.2 % (4.7-12.5); Platelet Count 325 x10^3/uL (182-369); Red Blood Count 4.97 x10^6/uL (3.93-5.22); Red Cell Distribution Width 13.2 % (11.7-14.4); White Blood Count 14.8 x10^3/uL (3.98-10.04)
[2023-12-21 04:00] LABS: ANION GAP 16.4 MEQ/L (5-15); BILIRUBIN,TOTAL 0.5 mg/dL (0.2-1.3); Calcium 9.6 mg/dL (8.4-10.2); Creatinine 1 0.63 mg/dL (0.52-1.04); Potassium 4.3 mmol/L (3.5-5.1); Total Protein 7.1 g/dL (6.3-8.2)
[2023-12-21 04:24] LABS: Appearance Cloudy (Clear); Bacteria Many /HPF (None Seen); Bilirubin Negative (Negative); Blood Negative (Negative); Epithelial Cells Few /HPF (None Seen); Glucose, Urine >=1000 mg/dL (Negative); Hyaline Casts NONE SEEN /LPF (0-2); Ketones Negative (Negative); Leukocyte Esterase Small (Negative); Nitrite Negative (Negative); Ph 5.5 (4.6-8.0); Protein,Urine Dip 30 (Negative); RBC 0-2 /HPF (0-5); Specific Gravity >=1.030 (1.005-1.030); Urobilinogen 0.2 mg/dL (0.2); WBC 51-100 /HPF (0-5)
[2023-12-21 04:30] LABS: ADD URINE CULTURE? YES (NO); Budding Yeast Few /HPF (None Seen)
[2023-12-21 04:43] VITALS: O2SAT 98
[2023-12-21] MEDS ORDERED: Levofloxacin 500MG/100ML D5W 500 MG/100 ML BAG IV ONE (04:45)
[2023-12-21] MEDS: Levofloxacin 500MG/100ML D5W 500 MG/100 ML BAG IV STA (04:48)
--- NOTE | 2023-12-21 05:05 | XRAY ---
CLINICAL HISTORY: left flank pain COMPARISON: none. TECHNIQUE: CT scan of the abdomen and pelvis was performed without IV contrast. coronal and sagittal images are available.One of the following dose reduction techniques were utilized for this exam: Automated exposure control, adjustment of the mA and/or kV according to patient size, use of iterative reconstruction? FINDINGS: Scan through the lower chest reveals left side small subpleural nodule measuring about 5 mm. Abdomen: The kidneys are unremarkable. They are normal in size and shape. No calculi or hydronephrosis. Smudged perirenal fat planes are noted, more on the left. The liver is mildly enlarged. No focal or diffuse parenchymal abnormality. The intrahepatic biliary radicals and the bile ducts are normal. The spleen, pancreas, adrenal glands are unremarkable. The gallbladder is surgically removed with cholecystectomy metallic clips noted. The ascending colon, the transverse colon, the descending colon, visualized small bowel loops are unremarkable. There is no evidence of significant enlargement of the mesenteric or retroperitoneal lymph nodes . Pelvis: The urinary bladder shows circumferential wall thickening and large air loculus. No gross exophytic masses or diverticular outpunching noted. The rectosigmoid colon is unremarkable. The uterus and ovaries are not visualized likely surgically removed. No evidence of pelvic lymphadenopathy. Vascular atheromatous changes are noted. Mild thoracolumbar spondylotic changes. IMPRESSION: 1. Urinary bladder circumferential wall thickening and large air loculus could be a sequel of prior intervention (catheterization) versus an inflammatory process and need clinical correlation. 2. Smudged perirenal fat planes. 3. Mild hepatomegaly. [facility] ER was called at [phone] at 03:57 AM VENEER GLUER, 12/21/2023 and Nurse Jena was informed about important medical findings. Electronically Signed by: Adebayo Diaz MD. (12/21/2023 05:00:28 EDT)
[2023-12-21 05:17] VITALS: BP 98/63; PULSE 85; RESP 14
== END 2023-12-21 05:55 | disposition home or self-care (01) ==
LOC: ED 03:01
DX: N39.0 Urinary tract infection, site not specified (principal); R10.9 Unspecified abdominal pain; I10 Essential (primary) hypertension; E78.5 Hyperlipidemia, unspecified; E10.9 Type 1 diabetes mellitus without complications
CPT/HCPCS: 36000; 36415; 74176; 80053; 81001; 82150; 83690; 83735; 85025; 87077; 87086; 87186; 96360; 96365; 96374; 96375; 99284; J1170; J1956; J2405

== ENCOUNTER 2025-04-09 02:00 | Emergency (ER) | payer OTHER ==
[2025-04-09 02:07] VITALS: TEMP 97.5
--- NOTE | 2025-04-09 02:20 | ERPHSYRPT ---
- History of Present Illness Time Seen by Provider: 04/09/25 02:10 Source: patient, EMS Exam Limitations: no limitations Patient Subjective Stated Complaint: pt reports approx 0030 this morning she was laying in bed with her and felt like she was unable to speak properly, states she was having trouble finding her words, pt states now she is not having trouble speaking but feels like she is "in a fog" pt states she has some right sided facial numbness at this time. Triage Nursing Assessment: pt is aox3, pupils perrl, no facial asymmetry noted, speech is clear, hands warp tier are strong and equal, pt answers questions appropriately, pt can follow commands, afebrile, resps easy and non labored, cap refill < 3 seconds, radial pusles strong and equal, abd soft non tender, right above the knee amputation noted, great left amputation noted, pt skin pink warm dry. Physician History: 49-year-old female presents to the emergency room with dysarthria patient reports she was talking to the boyfriend on her phone when she noticed her difficulty speaking she had word finding difficulties according to the significant other she had some facial droop which is since resolved left) difficulties lasted for about 20 seconds and then resolved also denies any headache denies any vision changes denies any focal deficits patient has severe history of peripheral vascular disease with prior right sided above-knee amputation patient is a diabetic on insulin now in ED for further eval Timing/Duration: today Severity: mild Character of Deficits: impaired speech Deficits: no difficulties Baseline/Normal Cognition: alert oriented x 3 Current Cognition: alert oriented x 3 Associated Symptoms: other (Word-finding difficulty), No slurred speech, No vision changes Allergies/Adverse Reactions: cephalexin [From Keflex] Allergy (Verified 04/09/25 02:44) Penicillins Allergy (Verified 04/09/25 02:44) Home Medications: Insulin Glargine,Hum.rec.anlog [Lantus] 30 units SQ HS 12/21/23 [History] Insulin Lispro [Humalog] 10 unit SQ UD 12/21/23 [History] Atorvastatin Calcium 20 mg PO DAILY 11/02/24 [History] Clopidogrel Bisulfate [Clopidogrel] 75 mg PO DAILY 11/02/24 [History] Aspirin EC 81 mg [Ecotrin 81 mg] 81 mg PO DAILY 04/09/25 [History] Escitalopram Oxalate [Lexapro] 10 mg PO DAILY 04/09/25 [History] Losartan Potassium 50 mg [Cozaar 50 MG] 50 mg PO DAILY 04/09/25 [History] Hx Tetanus, Diphtheria Vaccination/Date Given: Yes Hx Influenza Vaccination/Date Given: No Hx Pneumococcal Vaccination/Date Given: No Immunizations Up to Date: Yes Travel Risk - International Travel Have you traveled outside of the country in past 3 weeks: No - Emerging Infectious Disease Are you exhibiting symptoms associated with any current EIDs: No Symptoms: Abdominal Pain - Review of Systems Constitutional: No Fever, No Chills Eyes: No Symptoms Ears, Nose, & Throat: No Symptoms Respiratory: No Cough, No Dyspnea Cardiac: No Chest Pain, No Edema, No Syncope Abdominal/Gastrointestinal: No Abdominal Pain, No Nausea, No Vomiting, No Diarrhea Genitourinary Symptoms: No Dysuria Musculoskeletal: No Back Pain, No Neck Pain Skin: No Rash Neurological: Other (Dysarthria), No Dizziness, No Focal Weakness, No Sensory Changes Psychological: No Symptoms Endocrine: No Symptoms All Other Systems: Reviewed and Negative - Past Medical History Pertinent Past Medical History: Yes Neurological History: No Pertinent History ENT History: No Pertinent History Cardiac History: High Cholesterol, Hypertension Respiratory History: No Pertinent History Endocrine Medical History: Diabetes Type II Musculoskeletal History: Other GI Medical History: No Pertinent History History: No Pertinent History Psycho-Social History: Anxiety, Depression Female Reproductive Disorders: No Pertinent History Other Medical History: R above the knee amputee. PERIPHERAL VASCULAR DISEASE - Past Surgical History Past Surgical History: Yes Neuro Surgical History: No Pertinent History Cardiac: No Pertinent History Respiratory: No Pertinent History Gastrointestinal: Appendectomy, Cholecystectomy Genitourinary: Other Musculoskeletal: Prosthesis Female Surgical History: Hysterectomy Other Surgical History: RIGHT Above knee amputee, L kidney stent placed and removed. FEMORAL ARTERY BYPASS LEFT LEG. LEFT BIG TOE AMPUTATION - Female History Hx Last Menstrual Period: post hysterectomy Hx Now: No - Social History Smoking Status: Former smoker Exposure to second hand smoke: No Drug Use: none - Social Determinants of Health Will the patient participate in the screening: Yes Do you worry about a steady place to live?: No Do you have any problems with any of the following?: No known problems In the past 12 months,have you had to go without utilities?: No Transportation Issues: No Has anyone in your support network made you feel unsafe?: No Have you or anyone in your house had to go w/o enough food: No - Nursing Vital Signs Nursing Vital Signs: Initial Vital Signs Temperature 97.5 F 04/09/25 02:02 Pulse Rate 107 H 04/09/25 02:02 Respiratory Rate 20 04/09/25 02:02 Blood Pressure 144/70 04/09/25 02:02 O2 Sat by Pulse Oximetry 100 04/09/25 02:02 Pain Scale Pain Intensity 0 - Ori Coma Scale Best Eye Response ([place]): (4) open spontaneously Best Verbal Response ([place]): (5) oriented Best Motor Response ([place]): (6) obeys commands Ori Total: 15 - Physical Exam General Appearance: no apparent distress, alert Eye Exam: bilateral eye: PERRL, EOMI Ears, Nose, Throat Exam: normal ENT inspection, moist mucous membranes Neck Exam: normal inspection, non-tender, supple Respiratory: normal breath sounds, lungs clear, airway intact, No respiratory distress Cardiovascular: regular rate/rhythm, No edema Gastrointestinal: soft, No tenderness, No distention Back Exam: normal inspection Extremity Exam: normal inspection, No pedal edema Mental Status: alert, oriented x 3 development disability specialist Exam: tongue midline Coordination/Gait: normal finger to nose, normal gait Skin Exam: normal color, warm, dry, No rash SpO2: 100 Ordered Tests: Active Orders 24 hr Category Date Time Status Appeals Officer STAT Care 04/09/25 02:12 Active EKG-ER Only STAT Care 04/09/25 02:11 Completed IV Insertion STAT Care 04/09/25 02:11 Active NPO (ED) STAT Care 04/09/25 02:11 Active Pulse Oximetry (ED) STAT Care 04/09/25 02:11 Active NPO Diet 04/09/25 02:[address] ANGIOGRAPHY NECK [CT] Stat Exams 04/09/25 02:12 Completed CTA HEAD W AND/OR WO CONTRAST [CT] Stat Exams 04/09/25 02:16 Completed CBC W DIFF Stat Lab 04/09/25 02:25 Completed CMP Stat Lab 04/09/25 02:25 Completed CULTURE,URINE Stat Lab 04/09/25 03:25 Received MAGNESIUM Stat Lab 04/09/25 02:25 Completed PROTIME WITH INR Stat Lab 04/09/25 02:25 Completed PTT Stat Lab 04/09/25 02:25 Completed TROPONIN Q3H Lab 04/09/25 02:25 Completed TROPONIN Q3H Lab 04/09/25 05:15 Ordered UA W/RFX UR CULTURE Stat Lab 04/09/25 03:25 Completed Medication Summary Generic Name Dose Route Start Last Admin Trade Name Valerie PRN Reason Stop Dose Admin Magnesium Oxide 400 mg 04/09/25 10:00 04/09/25 02:54 Magnesium Oxide 400 Mg Tablet PO 05/09/25 09:59 400 mg DAILY RUDI Administration Lab/Rad Data: Laboratory Result Diagrams 04/09/25 02:25 04/09/25 02:25 Laboratory Results 04/09/25 04/09/25 04/09/25 Range/Units 03:25 02:25 02:25 WBC (3.98-10.04) x10^3/uL RBC (3.93-5.22) x10^6/uL Hgb (11.2-15.7) g/dL Hct (34.1-44.9) % MCV (79.4-94.8) fL MCH (25.6-32.2) pg MCHC (32.2-35.5) g/dL RDW (11.7-14.4) % Plt Count (182-369) x10^3/uL MPV (9.4-12.3) fL Gran % (34.0-71.1) % Immature Gran % (Auto) (0.001-0.429) % Nucleat RBC Rel Count (0.00-0.2) % Eos # (Auto) (0.04-0.36) x10^3/uL Immature Gran # (Auto) (0.001-0.031) x10^3u/L Absolute Lymphs (auto) (1.18-3.74) x10^3/uL Absolute Monos (auto) (0.24-0.86) x10^3/uL Absolute Nucleated RBC (0.00-0.012) x10^3u/L Lymphocytes % (19.3-51.7) % Monocytes % (4.7-12.5) % Eosinophils % (0.7-5.8) % Basophils % (0.1-1.2) % Absolute Granulocytes (1.56-6.13) x10^3/uL Basophils # (0.01-0.08) x10^3/uL PT (9.4-12.5) SECONDS INR (0.8-3.0) APTT (25.1-36.5) SECONDS Sodium 133 L (135-145) mmol/L Potassium 4.1 (3.5-5.1) mmol/L Chloride 102 (98-107) mmol/L Carbon Dioxide 20 L (22-30) mmol/L Anion Gap 14.9 (5-15) MEQ/L BUN 20 H (7-17) mg/dL Creatinine 0.69 (0.52-1.04) mg/dL Estimated GFR 107.0 ML/MIN Glucose 380 H (74-106) mg/dL Calcium 9.5 (8.4-10.2) mg/dL Magnesium 1.5 L (1.6-2.3) mg/dL Total Bilirubin 0.40 (0.2-1.3) mg/dL AST 32 (14-36) U/L ALT 35 (0-35) U/L Alkaline Phosphatase 159 H (38-126) U/L Troponin I 0.015 (0.000-0.033) ng/mL Serum Total Protein 6.6 (6.3-8.2) g/dL Albumin 3.8 (3.5-5.0) g/dL Urine Color Yellow (Yellow) Urine Appearance Clear (Clear) Urine pH 5.0 (4.6-8.0) Ur Specific [place] >=1.030 A (1.005-1.030) Urine Protein 30 (Negative) Urine Glucose (UA) >=1000 A (Negative) mg/dL Urine Ketones Negative (Negative) Urine Blood Negative (Negative) Urine Nitrite Negative (Negative) Urine Bilirubin Negative (Negative) Urine Urobilinogen 0.2 (0.2) mg/dL Ur Leukocyte Esterase Negative (Negative) U Hyaline Cast (Auto) NONE SEEN (0-2) /LPF Urine Microscopic RBC 0-2 (0-5) /HPF Urine Microscopic WBC 6-10 A (0-5) /HPF Ur Epithelial Cells None Seen (None Seen) /HPF Urine Bacteria Many A (None Seen) /HPF Urine Culture Reflexed YES (NO) 12/09/25 12/09/25 Range/Units 02:25 02:25 WBC 13.4 H (3.98-10.04) x10^3/uL RBC 4.38 (3.93-5.22) x10^6/uL Hgb 13.0 (11.2-15.7) g/dL Hct 38.0 (34.1-44.9) % MCV 86.8 (79.4-94.8) fL MCH 29.7 (25.6-32.2) pg MCHC 34.2 (32.2-35.5) g/dL RDW 13.2 (11.7-14.4) % Plt Count 302 (182-369) x10^3/uL MPV 9.6 (9.4-12.3) fL Gran % 54.2 (34.0-71.1) % Immature Gran % (Auto) 0.5 H (0.001-0.429) % Nucleat RBC Rel Count 0.0 (0.00-0.2) % Eos # (Auto) 0.55 H (0.04-0.36) x10^3/uL Immature Gran # (Auto) 0.07 H (0.001-0.031) x10^3u/L Absolute Lymphs (auto) 4.35 H (1.18-3.74) x10^3/uL Absolute Monos (auto) 1.06 H (0.24-0.86) x10^3/uL Absolute Nucleated RBC 0.00 (0.00-0.012) x10^3u/L Lymphocytes % 32.5 (19.3-51.7) % Monocytes % 7.9 (4.7-12.5) % Eosinophils % 4.1 (0.7-5.8) % Basophils % 0.8 (0.1-1.2) % Absolute Granulocytes 7.25 H (1.56-6.13) x10^3/uL Basophils # 0.11 H (0.01-0.08) x10^3/uL PT 9.4 (9.4-12.5) SECONDS INR 0.83 (0.8-3.0) APTT 23.4 L (25.1-36.5) SECONDS Sodium (135-145) mmol/L Potassium (3.5-5.1) mmol/L Chloride (98-107) mmol/L Carbon Dioxide (22-30) mmol/L Anion Gap (5-15) MEQ/L BUN (7-17) mg/dL Creatinine (0.52-1.04) mg/dL Estimated GFR ML/MIN Glucose (74-106) mg/dL Calcium (8.4-10.2) mg/dL Magnesium (1.6-2.3) mg/dL Total Bilirubin (0.2-1.3) mg/dL AST (14-36) U/L ALT (0-35) U/L Alkaline Phosphatase (38-126) U/L Troponin I (0.000-0.033) ng/mL Serum Total Protein (6.3-8.2) g/dL Albumin (3.5-5.0) g/dL Urine Color (Yellow) Urine Appearance (Clear) Urine pH (4.6-8.0) Ur Specific [place] (1.005-1.030) Urine Protein (Negative) Urine Glucose (UA) (Negative) mg/dL Urine Ketones (Negative) Urine Blood (Negative) Urine Nitrite (Negative) Urine Bilirubin (Negative) Urine Urobilinogen (0.2) mg/dL Ur Leukocyte Esterase (Negative) U Hyaline Cast (Auto) (0-2) /LPF Urine Microscopic RBC (0-5) /HPF Urine Microscopic WBC (0-5) /HPF Ur Epithelial Cells (None Seen) /HPF Urine Bacteria (None Seen) /HPF Urine Culture Reflexed (NO) - Progress Progress Note: 04/09/25 04:45 Imaging Report Continued Page: Name: PETRA ADAN Procedure Date: 04/09/25 Procedures: [id number] CT/CT ANGIOGRAPHY NECK Technologist: Emily Stewart Transcribed: 04/09/25440 Wire Mill Operator: FLORESITA CAR MD Printed: 04/09/25440 Page: Imaging Report [~ rep ct labl] Technologist: Emily Stewart Transcribed: 04/09/25440 Wire Mill Operator: FLORESITA CAR MD Printed: 04/09/25440 Page: Imaging Report [~ rep ct labl] [facility] [address] [place] [address], [address] [place], [place] [address] Name: PETRA ADAN Attending Physician: Ordering Physician: RICK SANCHEZ IMAGING REPORT : 1975 Age: 49 Sex: F Location: ED Report #: [id number] Exam Date: 04/09/25 Status: [facility] Procedures: [id number] CT/CT ANGIOGRAPHY NECK CLINICAL HISTORY: trouble speaking COMPARISON: None. TECHNIQUE: Contrast enhanced thin slice CT angiography scan of the carotid vessels was performed with intravenous contrast. Angiographic images were processed; 3D MIP images were acquired for interpretation. Contiguous axial images were obtained. Reformatted coronal and sagittal images were also reviewed. If IV contrast material had not been administered, the likelihood of detecting abnormalities relevant to the patient's condition would have been substantially decreased. CT scan was performed according to ALARA (as low as reasonably achievable). FINDINGS: Atherosclerotic calcifications are noted involving bilateral carotid bulb, causing 20%-30% luminal narrowing on the right side and 30%-40% luminal narrowing on the left side. Included great vessels of the aortic arch are grossly unremarkable. The common carotid artery, internal carotid artery, and origin of the external carotid artery are well opacified. Vertebral arteries are well opacified. Jugular veins are well opacified. The included lung apices are grossly unremarkable. Thyroid gland shows a small hypodense focus in the right lobe - USG correlation suggested. IMPRESSION: Atherosclerotic calcifications are noted involving bilateral carotid bulb, causing 20%-30% luminal narrowing on the right side and 30%-40% luminal narrowing on the left side. 04/09/25 04:58 TECHNIQUE: Contrast-enhanced thin-slice CT angiography scan of the cerebral vessels was performed without and with intravenous contrast. Angiographic images were processed, and 3D MIP images were acquired for interpretation. Contiguous axial images were obtained. Reformatted coronal and sagittal images were also reviewed. If IV contrast material had not been administered, the likelihood of detecting abnormalities relevant to the patient's condition would have been substantially decreased. The CT scan was performed according to ALARA (as low as reasonably achievable). FINDINGS: Atherosclerotic calcifications are noted involving the petrous, cavernous, clinoid, and supraclinoid segments of the bilateral internal carotid arteries, causing mild to moderate irregular luminal narrowing. Bilateral internal carotid arteries show normal course, calibre, and opacification in the canalicular and cavernous parts. Their division into the anterior cerebral artery and middle cerebral artery is defined. PatientID: [id number] Patient Name: PETRA ADAN Exam Date: 04/09/2025 Procedure: CTA HEAD W AND/OR WO CONTRAST page 1 of 2 A1, A2 and M1, M2 segments are normal on both sides. Bilateral vertebral arteries are seen to unite to form the basilar artery in a normal fashion. Basilar artery shows normal course, caliber, and opacification. Its division into the posterior cerebral arteries is defined. Bilateral P1 and P2 segments are normal. Visualized venous structures show normal opacification. No evidence of intracranial aneurysm or AV malformation is seen. IMPRESSION: Atherosclerotic calcifications are noted involving the petrous, cavernous, clinoid, and supraclinoid segments of the bilateral internal carotid arteries, causing mild to moderate irregular luminal narrowing. The rest of the intracranial vessels appear unremarkable 04/09/25 05:04 Patient was offered admission for MRI for TIA however patient's request to be discharged she understands the risk she states she feels fine she is back to her baseline she had her magnesium repleted while in the ED patient's significant other is at bedside who also would like to take the patient home at this time and they will return for any new or worsening symptoms I recommended that patient at the very least an outpatient MRI at their earliest convenience he said they will call the family doctor to have that arranged patient will be discharged at this time - Departure Departure Disposition: Home Clinical Impression: Dysarthria, Hypomagnesemia UTI (urinary tract infection) Qualifiers: Urinary tract infection type: site unspecified Hematuria presence: without hematuria Qualified Code(s): N39.0 - Urinary tract infection, site not specified Condition: Stable Critical Care Time: No Referrals: GLORIA SANDOVAL DO [Primary Care Provider, [facility]] - Follow up/PCP as directed Instructions: Dysarthria, Transient Ischemic Attack (DC), Hypomagnesemia, Urinary tract infections in adults Prescriptions: Nitrofurantoin Macro 100 mg [Macrobid 100MG Capsule] 100 mg PO BID #10 cap
[2025-04-09 02:35] LABS: BASOPHIL % 0.8 % (0.1-1.2); Basophil (Absolute #) 0.11 x10^3/uL (0.01-0.08); Eosinophil (Absolute #) 0.55 x10^3/uL (0.04-0.36); Hematocrit 38.0 % (34.1-44.9); Hemoglobin 13.0 g/dL (11.2-15.7); IMMATURE GRAN # 0.07 x10^3u/L (0.001-0.031); IMMATURE GRAN % 0.5 % (0.001-0.429); Lymphocyte (Absolute #) 4.35 x10^3/uL (1.18-3.74); Mean Corpuscular Hemoglobin 29.7 pg (25.6-32.2); Mean Corpuscular Hgb Concent. 34.2 g/dL (32.2-35.5); Monocyte (Absolute #) 1.06 x10^3/uL (0.24-0.86); NUCLEATED RBC # 0.00 x10^3u/L (0.00-0.012); NUCLEATED RBC % 0.0 % (0.00-0.2); Platelet Count 302 x10^3/uL (182-369); Red Blood Count 4.38 x10^6/uL (3.93-5.22); White Blood Count 13.4 x10^3/uL (3.98-10.04)
[2025-04-09 02:45] LABS: Calcium 9.5 mg/dL (8.4-10.2); Carbon Dioxide 20.0 mmol/L (22-30); Creatinine 1 0.69 mg/dL (0.52-1.04); EST GLOMERULAR FILTRATION RATE 107.0 ML/MIN; Glucose 380.0 mg/dL (74-106); Potassium 4.1 mmol/L (3.5-5.1); SGOT/AST 32.0 U/L (14-36); SGPT/ALT 35.0 U/L (0-35); Total Protein 6.6 g/dL (6.3-8.2)
[2025-04-09 02:46] LABS: INR 0.83 (0.8-3.0); PROTIME 9.4 SECONDS (9.4-12.5); PTT 23.4 SECONDS (25.1-36.5)
[2025-04-09] MEDS ORDERED: MAG-OX 400 ONE (02:52)
[2025-04-09] MEDS: MAG-OX 400 PO SCH (02:54)
[2025-04-09 03:55] LABS: Glucose, Urine >=1000 mg/dL (Negative); Protein,Urine Dip 30 (Negative); RBC 0-2 /HPF (0-5)
--- NOTE | 2025-04-09 04:42 | XRAY ---
CLINICAL HISTORY: trouble speaking COMPARISON: None. TECHNIQUE: Contrast enhanced thin slice CT angiography scan of the carotid vessels was performed with intravenous contrast. Angiographic images were processed; 3D MIP images were acquired for interpretation. Contiguous axial images were obtained. Reformatted coronal and sagittal images were also reviewed. If IV contrast material had not been administered, the likelihood of detecting abnormalities relevant to the patient's condition would have been substantially decreased. CT scan was performed according to ALARA (as low as reasonably achievable). FINDINGS: Atherosclerotic calcifications are noted involving bilateral carotid bulb, causing 20%-30% luminal narrowing on the right side and 30%-40% luminal narrowing on the left side. Included great vessels of the aortic arch are grossly unremarkable. The common carotid artery, internal carotid artery, and origin of the external carotid artery are well opacified. Vertebral arteries are well opacified. Jugular veins are well opacified. The included lung apices are grossly unremarkable. Thyroid gland shows a small hypodense focus in the right lobe - USG correlation suggested. IMPRESSION: Atherosclerotic calcifications are noted involving bilateral carotid bulb, causing 20%-30% luminal narrowing on the right side and 30%-40% luminal narrowing on the left side. Electronically Signed by: Leon Pacheco MD. (04/09/2025 04:41:11 EST)
--- NOTE | 2025-04-09 04:56 | XRAY ---
CLINICAL HISTORY: dysarthria COMPARISON: None. TECHNIQUE: Contrast-enhanced thin-slice CT angiography scan of the cerebral vessels was performed without and with intravenous contrast. Angiographic images were processed, and 3D MIP images were acquired for interpretation. Contiguous axial images were obtained. Reformatted coronal and sagittal images were also reviewed. If IV contrast material had not been administered, the likelihood of detecting abnormalities relevant to the patient's condition would have been substantially decreased. The CT scan was performed according to ALARA (as low as reasonably achievable). FINDINGS: Atherosclerotic calcifications are noted involving the petrous, cavernous, clinoid, and supraclinoid segments of the bilateral internal carotid arteries, causing mild to moderate irregular luminal narrowing. Bilateral internal carotid arteries show normal course, calibre, and opacification in the canalicular and cavernous parts. Their division into the anterior cerebral artery and middle cerebral artery is defined. A1, A2 and M1, M2 segments are normal on both sides. Bilateral vertebral arteries are seen to unite to form the basilar artery in a normal fashion. Basilar artery shows normal course, caliber, and opacification. Its division into the posterior cerebral arteries is defined. Bilateral P1 and P2 segments are normal. Visualized venous structures show normal opacification. No evidence of intracranial aneurysm or AV malformation is seen. IMPRESSION: Atherosclerotic calcifications are noted involving the petrous, cavernous, clinoid, and supraclinoid segments of the bilateral internal carotid arteries, causing mild to moderate irregular luminal narrowing. The rest of the intracranial vessels appear unremarkable. Electronically Signed by: Leon Pacheco MD. (04/09/2025 04:55:12 EST)
[2025-04-09 05:03] VITALS: RESP 17
[2025-04-09 06:18] VITALS: BP 132/102; PULSE 87; O2SAT 92
== END 2025-04-09 06:28 | disposition home or self-care (01) ==
LOC: ED 02:00
DX: R47.1 Dysarthria and anarthria (principal); E83.42 Hypomagnesemia; N39.0 Urinary tract infection, site not specified; E11.9 Type 2 diabetes mellitus without complications; I10 Essential (primary) hypertension; Z79.4 Long term (current) use of insulin; Z79.02 Long term (current) use of antithrombotics/antiplatelets; Z79.899 Other long term (current) drug therapy